=== PATIENT | female | born 1970 | race Caucasian/White ===

== ENCOUNTER → 2018-03-07 | Outpatient (CLI) | payer BC | END | disposition home or self-care (01) | LOC: MRI 07:55 | DX: M48.02 Spinal stenosis, cervical region (principal); M50.222 Other cervical disc displacement at C5-C6 level | CPT/HCPCS: 72141 ==

== ENCOUNTER 2018-06-08 07:38 | Day surgery (SDC) | payer BC ==
[~2018-06-08] VITALS: Ht 154.9 cm; Wt 95.7 kg
[~2018-06-08 07:38] MED LIST: HYDROmorphone 2 MG/ML VIAL IV PRN; IV RINGERS,LACTATED 1000ML 1,000 ML IV SCH; LIDOCAINE 1% PF 2 ML VIAL. ID PRN; ONDANSETRON PF 4 MG/2 ML VIAL. IV PRN; PROCHLORPERAZINE 10 MG/2 ML VIAL. IV PRN; fentaNYL PF VIAL 100 MCG/2 ML VIAL IV PRN
[2018-06-08] MEDS ORDERED: fentaNYL PF VIAL 100 MCG/2 ML VIAL ONE (08:07)
[2018-06-08] MEDS ORDERED: SUCCINYLCHOLINE 200 MG/10 ML VIAL. ONE (08:07)
[2018-06-08] MEDS ORDERED: PROPOFOL 20 ML IV ONE (08:07)
[2018-06-08] MEDS ORDERED: ROCURONIUM 50 MG/5 ML VIAL. ONE (08:07)
[2018-06-08] MEDS ORDERED: LEVO88TA4 PO (08:15)
[2018-06-08] MEDS ORDERED: RANI150T2 PO (08:16)
[2018-06-08] MEDS ORDERED: TIZA4CAP3 PO (08:17)
[2018-06-08] MEDS ORDERED: CELE200C PO (08:17)
[2018-06-08] MEDS ORDERED: NAPR220C4 PO (08:18)
[2018-06-08] MEDS ORDERED: BUPIVACAINE-EPI 0.5%-1:200000 50 ML VIAL. ONE (08:29)
[2018-06-08] MEDS ORDERED: IOHEXOL 300 MG/ML 100ML VIAL. ONE (08:29)
[2018-06-08] MEDS ORDERED: SURGICEL HEMOSTAT 2X3 EACH. ONE (08:29)
[2018-06-08] MEDS ORDERED: MIDAZOLAM HCL/PF 2 MG/2 ML VIAL. IV ONE ×2 (08:30→12:45)
[2018-06-08] MEDS ORDERED: MIDAZOLAM HCL/PF 5 MG/5 ML VIAL. ONE (08:31)
[2018-06-08] MEDS ORDERED: GLYCOPYRROLATE 1 MG/5 ML VIAL. ONE (10:02)
[2018-06-08] MEDS ORDERED: DEXAMETHASONE SOD PHOS 20 MG/5 ML VIAL. ONE (10:02)
[2018-06-08] MEDS ORDERED: NEOSTIGMINE METHYLSULFATE 5 MG/5 ML SYRINGE. ONE (10:02)
[2018-06-08] MEDS ORDERED: ONDANSETRON PF 4 MG/2 ML VIAL. ONE (10:02)
[2018-06-08] MEDS ORDERED: DESFLURANE 31 TO 60 MINUTES IH ONE (10:02)
[2018-06-08] MEDS ORDERED: FAMOTIDINE 20 MG/2 ML VIAL ONE (10:24)
--- NOTE | 2018-06-08 10:33 | RAD ---
Intraoperative cholangiogram, 06/08/2018: HISTORY: Cholecystectomy 2 spot films from surgery are presented for review. Contrast has been injected into the cystic duct remnant. 0.16 minutes of fluoroscopy time was utilized. There is good flow of contrast into the duodenum at the ampulla. No filling defect is seen in the common duct to suggest a retained calculus. There was reflux of contrast into a portion of the pancreatic duct. The incompletely opacified intrahepatic ducts are unremarkable. No contrast extravasation is seen. IMPRESSION: No significant abnormality is detected. Electronically signed by: Jan Padgett MD (06/08/2018 10:30 AM) [facility]
--- NOTE | 2018-06-08 11:11 | DISCH ---
DISCHARGE INSTRUCTIONS Condition on Discharge Condition on Discharge: Stable Activity After Discharge Activity Instructions for Disc: Other, see below (no lifting over 20 lbs X 2 weeks) Diet after Discharge Diet after Discharge: Regular Wound Incision Care Wound/Incision Care: Other, see below (may remove bandaids and shower tomorrow) Follow-Up Follow up with: Dr Brooks in 2 weeks, call for appt [phone] BETZAIDA BROOKS MD Jun 08, 2018 11:11
[2018-06-08] MEDS: MORPHINE SULFATE 2 MG/ML VIAL. IV PRN ×2 (11:13→11:24)
--- NOTE | 2018-06-08 11:16 | PDOC4 ---
Operative Note Operative Note Operative Note: Preoperative Diagnosis: Biliary dyskinesia Postoperative Diagnosis: Same Procedure: Laparoscopic cholecystectomy with intraoperative cholangiogram Surgeons: Devonte Anesthesia: Gen. Estimated Blood Loss: 10 mL Specimen: Gallbladder to pathology Drains: None Complications: None Indications: The patient is a 47 year old female who was referred after evaluation revealed biliary dyskinesia. Surgical treatment was offered by means of a laparoscopic cholecystectomy. The risks of surgery were discussed which include bleeding, infection, bile duct injury, bile leak, pain, the potential for additional surgeries or procedures. The patient understands and would like to proceed. Description: The patient was taken to the operating room and laid supine on the operating table. General anesthesia was performed. The abdomen was prepped with ChloraPrep and draped in a standard surgical fashion. A small infraumbilical incision was made with a scalpel. The Veress needle was then inserted and a pneumoperitoneum was then created. A 5 mm trocar was then inserted and the laparoscope was introduced. In the upper midabdomen a 5 mm trocar was inserted and in the right upper quadrant one 5 mm trocar and one 2.3 mm mini lap grasper were inserted. The gallbladder was retracted cephalad. The cystic duct was dissected free from surrounding tissues. One clip was placed on the duct near the gallbladder junction. An opening was made in the duct and a cholangiocatheter placed within and secured with a clip. Using contrast dye and fluoroscopy an intraoperative cholangiogram was performed that appeared unremarkable. The clip and catheter were then withdrawn. Three clips were placed on the cystic duct and it was divided. The cystic artery was then identified, dissected free, doubly clipped and divided as well. The gallbladder was then mobilized away from the liver with cautery. The umbilical 5 millimeter trocar was exchanged for an 11 millimeter trocar. The gallbladder was then placed in an endoscopic bag and extracted at the umbilical trocar site. The fascia there was closed with an 0 Vicryl suture. All blood and irrigation fluid was suctioned and hemostasis was good. The remaining ports were removed and the pneumoperitoneum was relieved. The skin incisions were injected with half percent Marcaine with epinephrine, and all were closed using 4-0 Monocryl suture. Steri-Strips and dressings were then applied. The patient tolerated the procedure well and was sent to the recovery room in stable condition. At the end of the case all counts were correct. BETZAIDA BROOKS MD Jun 08, 2018 11:16
[2018-06-08 13:30] VITALS: BP 155/68
--- NOTE | 2018-06-10 16:09 | PATHOLOGY ---
[facility] Accession Number: [id number] . 01 Material submitted: . GALLBLADDER . 01 Clinician provided ICD-10: K82.8 . 01 Clinical history: . Biliary dyskinesia . 02 Diagnosis: Gallbladder, cholecystectomy: - Chronic cholecystitis. - Cystic duct lymph node with mild fatty change. - No gallstones present. (SKM:[facility] 06/10/2018) P/06/10/2018 . 02 Electronically signed: . Garrett Cary MD, Pathologist NPI- [id number] . 01 Gross description: . The specimen is received in formalin, labeled "Genail, Jennifer and gallbladder", is a disrupted, collapsed 8.5 x 2.6 x 1.0 cm gallbladder. Within the cystic neck region there is a orosco rubbery lymph node, 0.6 x 0.4 x 0.3 cm. The serosa is orosco-louis and partially wrinkled. Opening the gallbladder reveal the lumen filled with scant yellow-green bile and no discrete calculi. The mucosa is orosco-brown and granular. The gallbladder wall is 0.1 cm thick. No discrete masses are identified. Sound Editor sections are submitted in A1. (SWS; 06/08/2018) SHS/SHS . 02 Pathologist provided ICD-10: K81.1 . 02 CPT . 216371 Specimen Comment: A courtesy copy of this report has been sent to Specimen Comment: [phone], , . Specimen Comment: Report sent to , , and Performed at: [address], [place], [place] [id number] MD Angelo Donahue MD Phone: [phone] Performed at: [address] [id number] MD Lee Benoit MD Phone: [phone]
== END 2018-06-08 13:45 | disposition home or self-care (01) ==
LOC: SURG 07:38
PROVIDERS: ATTEND Surgery
DX: K81.1 Chronic cholecystitis (principal); K21.9 Gastro-esophageal reflux disease without esophagitis; E03.9 Hypothyroidism, unspecified; F41.9 Anxiety disorder, unspecified; M19.90 Unspecified osteoarthritis, unspecified site; Z79.899 Other long term (current) drug therapy; Z88.8 Allergy status to other drugs, medicaments and biological substances; Z90.710 Acquired absence of both cervix and uterus; Z98.51 Tubal ligation status; Z82.49 Family history of ischemic heart disease and other diseases of the circulatory system; Z72.89 Other problems related to lifestyle; E66.01 Morbid (severe) obesity due to excess calories; Z68.39 Body mass index [BMI] 39.0-39.9, adult
CPT/HCPCS: 47563; 74300; 88304; A7015; J0330; J0690; J1100; J2250; J2270; J2405; J2704; J2710; J3010; J3490; J7030; J7120; Q9967; S0028